=== PATIENT | female | born 1990 | race Caucasian/White ===

== ENCOUNTER 2020-10-03 19:30 | Emergency (ER) | payer MEDICAID ==
[~2020-10-03] VITALS: Ht 162.6 cm; Wt 58.6 kg
[2020-10-03] MEDS ORDERED: albuterol 2.5 MG/3 ML nebule NEB ONE (21:00)
[2020-10-03 21:45] VITALS: BP 99/57
[2020-10-03] MEDS ORDERED: normal saline 1000ML IV soln IVB ONE (22:40)
[2020-10-03] MEDS ORDERED: ketorolac trometh. 30mg/ml inj. IV ONE (23:15)
[2020-10-03 23:56] LABS: BASOPHILS % (AUTO) 0.4 % (0-1); EOSINOPHILS % (AUTO) 0 % (0-6); HEMATOCRIT 36.7 % (35.0-45.0); HEMOGLOBIN 12.7 g/dl (12.0-16.0); LYMPHOCYTES # (AUTO) 0.5 X10'3 (1.1-4.8); LYMPHOCYTES % (AUTO) 11.1 % (21-51); MEAN CORPUSCULAR HEMOGLOBIN 30.5 PG (27.0-31.0); MEAN CORPUSCULAR HGB CONC 34.5 g/dL (33.0-36.5); MEAN CORPUSCULAR VOLUME 88.3 FL (78-98); MEAN PLATELET VOLUME 7.9 FL (7.4-10.4); MONOCYTES # (AUTO) 0.2 X10'3 (0-0.9); MONOCYTES % (AUTO) 4.1 % (2-12); NEUTROPHILS # (AUTO) 3.6 X10'3 (1.8-7.7); NEUTROPHILS % (AUTO) 84.4 % (42-75); PLATELET COUNT 181 X10'3 (140-440); RED BLOOD COUNT 4.15 X10'6 (4.20-5.60); RED CELL DISTRIBUTION WIDTH 12.6 % (11.5-14.5); WHITE BLOOD COUNT 4.3 X10'3 (4.5-11.0)
[2020-10-03 23:58] LABS: ALANINE AMINOTRANSFERASE 18 U/L (12-78); ALBUMIN 3.5 G/DL (3.4-5.0); ALBUMIN/GLOBULIN RATIO 0.9 (1.1-1.5); ALKALINE PHOSPHATASE 31 IU/L (46-116); ANION GAP 14 (8-16); ASPARTATE AMINO TRANSFERASE 29 U/L (10-37); BILIRUBIN,TOTAL 0.5 MG/DL (0.1-1.0); BLOOD UREA NITROGEN 9 MG/DL (7-18); BUN/CREATININE RATIO 11.8 (6.6-38.0); CALCIUM 8.4 MG/DL (8.5-10.1); CHLORIDE 103 MMOL/L (99-107); CREATININE 0.76 MG/DL (0.40-0.90); GLUCOSE 108 MG/DL (70-104); POTASSIUM 3.1 MMOL/L (3.5-5.1); SODIUM 139 MMOL/L (135-145); TOTAL CARBON DIOXIDE 22.5 MMOL/L (24-32); TOTAL PROTEIN 7.2 G/DL (6.4-8.2); eGFR 89 ML/MIN
[2020-10-04] MEDS ORDERED: dexamethasone sod phosphate 10mg/ml inj IV STA (00:25)
[2020-10-04] MEDS ORDERED: ALB0.5UD IH (00:30)
[2020-10-04] MEDS ORDERED: NEBU-208 (00:30)
== END 2020-10-04 01:03 | disposition home or self-care (01) ==
LOC: ER 19:33
DX: U07.1 COVID-19 (principal); J45.901 Unspecified asthma with (acute) exacerbation; Z88.0 Allergy status to penicillin; Z88.1 Allergy status to other antibiotic agents; Z79.899 Other long term (current) drug therapy
CPT/HCPCS: 36415; 71045; 80053; 83605; 83735; 84145; 85025; 87040; 87635; 93005; 96361; 96374; 96375; 99285; C9803; J1100; J1885; J7030; 94760; 99284

== ENCOUNTER → 2023-11-17 | Outpatient (CLI) | payer MEDICAID ==
[~2023-11-17] VITALS: Ht 190.5 cm; Wt 65.8 kg
[~2023-11-17] MED LIST: NEBU-208
[2023-11-17] MEDS: albuterol 2.5 MG/3 ML nebule NEB ONE (15:14)
[2023-11-17 15:16] VITALS: PULSE 82; RESP 16; O2SAT 99
[2023-11-17 15:49] VITALS: PULSE 87; RESP 16
== END | disposition home or self-care (01) ==
LOC: RT 14:40
PROVIDERS: ATTEND Nurse Practitioner Primary Care
DX: J45.901 Unspecified asthma with (acute) exacerbation (principal)
CPT/HCPCS: 94060; 94729; 94760